=== PATIENT | female | born 1980 | race Caucasian/White ===

== ENCOUNTER 2019-06-28 20:49 | Emergency (ER) | payer OTHER ==
[2019-06-28 21:08] VITALS: BP 124/54; PULSE 91; TEMP 97.8; BMI 25.9
--- NOTE | 2019-06-28 21:10 | PDOC ---
Rapid Medical Evaluation Chief Complaint: Headache Time Seen by Provider: 06/28/19 21:08 Medical Evaluation: Allergies Allergy/AdvReac Type Severity Reaction Status Date / Time No Known Allergies Allergy Verified 06/28/19 21:05 Vital Signs Temp Pulse Resp BP Pulse Ox 97.8 F 91 H 18 124/54 L 99 06/28/19 21:05 06/28/19 21:05 06/28/19 21:05 06/28/19 21:05 06/28/19 21:05 06/28/19 21:09 Pt presents with 2 weeks of right sided headache. State the pain is radiating to her r ear and neck Exam: no gross neuro deficits Orders: labs, IV Pt to proceed to the ER for further evaluation Discharge Disposition - Diagnosis Headache - Referrals - Patient Instructions - Post Discharge Activity
[2019-06-28 22:05] LABS: HEMATOCRIT 40.5 % (32.4-45.2); HEMOGLOBIN 13.4 GM/dL (10.7-15.3); LYMPH % 35.8 % (8-40); MCH 32.1 pg (25.7-33.7); MCHC 33.1 g/dl (32.0-36.0); MEAN CELL VOLUME 96.8 fl (80-96); MEAN PLT VOLUME 10.3 fl (7.5-11.1); PLATELET COUNT 196 K/MM3 (134-434); RBC 4.19 M/mm3 (3.60-5.2); RDW 13.5 % (11.6-15.6); WHITE BLOOD COUNT 9.1 K/mm3 (4.0-10.0)
[2019-06-28 22:06] LABS: BASO % 0.8 % (0-2.0); EOS % 1.4 % (0-4.5)
[2019-06-28 22:33] LABS: BILIRUBIN,TOTAL 0.4 mg/dL (0.2-1); BLOOD UREA NITROGEN 10.2 mg/dL (7-18); CALCIUM 9.1 mg/dL (8.5-10.1); CREATININE 0.7 mg/dL (0.55-1.3); POTASSIUM 4.2 mmol/L (3.5-5.1); TOT PROT 7.2 g/dl (6.4-8.2)
[2019-06-28] MEDS ORDERED: ACETAMINOPHEN 325 MG TABLET (FP) PO ONE (23:13)
[2019-06-28] MEDS ORDERED: METHOCARBAMOL 750 MG TABLET PO ONE (23:13)
[2019-06-28] MEDS ORDERED: ACETAMINOPHEN 325 MG TABLET (FP) ONE (23:23)
[2019-06-28] MEDS ORDERED: METHOCARBAMOL 500 MG TABLET ONE (23:23)
[2019-06-29] MEDS ORDERED: KETOROLAC TROMETHAMINE 60 MG/2 ML VIAL ONE (00:25)
[2019-06-29] MEDS ORDERED: KETOROLAC TROMETHAMINE 60 MG/2 ML VIAL IM ONE (00:26)
--- NOTE | 2019-06-29 01:10 | PDOC ---
History of Present Illness - General Chief Complaint: Headache Stated Complaint: HEADACHE Time Seen by Provider: 06/28/19 21:08 History Source: Patient Exam Limitations: No Limitations Past History - Past Medical History Allergies/Adverse Reactions: Allergies Allergy/AdvReac Type Severity Reaction Status Date / Time No Known Allergies Allergy Verified 06/28/19 21:05 Home Medications: Ambulatory Orders Vitamins (Sjr) - 1 tab PO DAILY 11/24/14 Labetalol HCl [Normodyne -] 100 mg PO BID #0 tablet 03/16/15 Oxycodone HCl/Acetaminophen [Percocet 5-325 mg Tablet -] 1 tab PO Q4H PRN #20 tablet 03/16/15 Methocarbamol [Robaxin -] 1,500 mg PO Q6H PRN #24 tablet 06/29/19 Anemia: No Asthma: No Cancer: No Cardiac Disorders: No COPD: No Diabetes: No HTN: No Seizures: No Thyroid Disease: No - Surgical History Cholecystectomy: Yes - Suicide/Smoking/Psychosocial Hx Smoking Status: No Smoking History: Never smoked Have you smoked in the past 12 months: No Number of Cigarettes Smoked Daily: 0 Hx Alcohol Use: No Drug/Substance Use Hx: No Substance Use Type: None Hx Substance Use Treatment: No *Physical Exam - Vital Signs Last Vital Signs Temp Pulse Resp BP Pulse Ox 97.8 F 91 H 18 124/54 L 99 06/28/19 21:05 06/28/19 21:05 06/28/19 21:05 06/28/19 21:05 06/28/19 21:05 - Physical Exam General Appearance: No: Apparent Distress HEENT: positive: EOMI, MARK Neck: positive: Other (+TTP along R upper traps, pain with turning neck to right ). negative: Tender midline Respiratory/Chest: positive: Lungs Clear, Normal Breath Sounds. negative: Respiratory Distress Cardiovascular: positive: Regular Rhythm, Regular Rate, S1, S2. 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 negative: Facial Droop, Confused, Disoriented ED Treatment Course - LABORATORY CBC & Chemistry Diagram: 06/28/19 21:45 06/28/19 21:45 - ADDITIONAL ORDERS Additional order review: Laboratory Results 06/28/19 06/28/19 21:45 21:45 Sodium 140 Potassium 4.2 Chloride 104 Carbon Dioxide 32 Anion Gap 3 L BUN 10.2 Creatinine 0.7 Est GFR (CKD-EPI)AfAm 125.61 Est GFR (CKD-EPI)NonAf 108.38 Random Glucose 125 H Calcium 9.1 Total Bilirubin 0.4 AST 25 ALT 30 Alkaline Phosphatase 104 Total Protein 7.2 Albumin 4.0 Urine HCG, Qual Negative 06/28/19 21:45 RBC 4.19 MCV 96.8 H MCHC 33.1 RDW 13.5 D MPV 10.3 Neutrophils % 55.0 Lymphocytes % 35.8 D Monocytes % 7.0 Eosinophils % 1.4 Basophils % 0.8 - Medications Given in the ED: ED Medications Discontinued Medications Generic Name Dose Route Start Last Admin Trade Name Shaggyq PRN Reason Stop Dose Admin Acetaminophen 975 mg 06/28/19 23:13 06/28/19 23:26 Tylenol - PO 06/28/19 23:14 975 mg ONCE ONE Administration Ketorolac Tromethamine 60 mg 06/29/19 00:26 06/29/19 00:29 Toradol Injection - IM 06/29/19 00:27 60 mg ONCE ONE Administration Methocarbamol 1,500 mg 06/28/19 23:13 06/28/19 23:26 Robaxin - PO 06/28/19 23:14 1,500 mg ONCE ONE Administration Medical Decision Making - Medical Decision Making 38 y/o F with no sig pmh presents with R occipital/neck HOLDER x 3 weels, worse today. Took Motrin 800 mg at 6 PM but still not feeling better so came to ED. Mentions never having this type of HOLDER before. Also mentions slight tingling along R 4th and 5th digits (does not come from the neck). Denies eye pain, visual changes, fever, URI sxs, sob, cp, vomiting, weakness of extremities. Has hx of and cholecystectomy. Likely MSK pain Initially given Tylenol and Robaxin with slight improvement in pain Then given Toradol and feeling markedly better Stable for dc 06/29/19 01:05 *DC/Admit/Observation/Transfer Diagnosis at time of Disposition: Musculoskeletal pain - Discharge Dispostion Disposition: HOME Condition at time of disposition: Improved Decision to Admit order: No - Prescriptions Prescriptions: Methocarbamol [Robaxin -] 1,500 mg PO Q6H PRN #24 tablet PRN Reason: Muscle Spasms - Referrals - Patient Instructions Printed Discharge Instructions: DI for Neck Pain, DI for Occipital Neuralgia Additional Instructions: Thank you for choosing [facility]. It was a pleasure taking care of you. You may take Motrin 600 mg every 6 hours by mouth as needed for mild to moderate pain. Take Motrin with food. Take Robaxin as needed for muscle spasms. This medication can also make you drowsy so please be cautious with driving or performing heavy physical work. Recommend warm compresses as well Follow-up with your doctor in 2 days Return to the Emergency Department if your symptoms worsen or persist, you have fever, vomiting, dizziness, weakness of extremities (arms and/or legs), changes in vision or walking or other concerning symptoms. - Post Discharge Activity
== END 2019-06-29 01:28 | disposition home or self-care (01) ==
LOC: JER 20:49
PROC: 3E0233Z Introduction of Anti-inflammatory into Muscle, Percutaneous Approach (ICD-10-PCS; principal; 2019-06-28)
DX: M79.18 Myalgia, other site (principal)
CPT/HCPCS: 36415; 80053; 84703; 85025; 99282-25